=== PATIENT | female | born 1980 | race Two or more races ===

== ENCOUNTER → 2024-09-04 | Outpatient (CLI) | payer MEDICARE, MEDICAID, SELFPAY ==
--- NOTE | 2024-09-04 14:45 | XR_ITS ---
Examination: Ultrasound soft tissue chest TECHNIQUE: Grayscale sonographic images soft tissue chest Exam date and time: September 04, 2024 1452 hours INDICATIONS: Palpable mass left breast increasing redness in size beginning one month ago FINDINGS: 16 x 3 x 12 mm tubular mass in the subcutaneous soft tissue at the area concern IMPRESSION: Solid mass at the area concern 16 x 3 x 12 mm, differential would include soft tissue tumor This mass is amenable to ultrasound-guided biopsies as clinically warranted
== END | disposition home or self-care (01) ==
PROVIDERS: PCP Family Medicine; Referring Provider Nurse Practitioner Family; Visit Provider Nurse Practitioner Family
DX: N61.1 Abscess of the breast and nipple (principal)
CPT/HCPCS: 76604

== ENCOUNTER → 2025-06-01 | Outpatient (CLI) | payer MEDICARE, MEDICAID, SELFPAY ==
--- NOTE | 2025-06-01 09:30 | XR_ITS ---
Examination: Pelvic ultrasound, transabdominal, complete Technique: Transabdominal ultrasound of the pelvis performed using grayscale imaging Date and time of exam: 06/01/2025 at 9:31 a.m. INDICATION: Irregular menstruation for 3 months COMPARISON: None FINDINGS: The anteverted uterus measures 6.9 x 3.1 x 4.2 cm. Echotexture is within normal limits. No apparent fibroids. The endometrium measures 8 mm in thickness. No polyp or other discrete mass detected. The right ovary measures 4.1 x 2.3 x 3.0 cm. No concerning lesion. The left ovary measures 3.5 x 1.6 x 2.0 cm. No concerning lesion. Both ovaries show intact blood flow on color Doppler. No adnexal mass detected. No apparent free fluid The urinary bladder is well distended and appears normal in the [id number]. IMPRESSION: Normal pelvic ultrasound.
--- NOTE | 2025-06-01 09:30 | XR_ITS ---
Examination: Abdomen sonogram, complete Date and time of exam: 06/01/2025 at 9:39 a.m. INDICATION: Irregular menses for 3 months COMPARISON: Abdominal ultrasound 12/31/2017 Technique: Multiple real-time grayscale transabdominal sonographic images of the abdomen have been obtained. Findings: The visualized portions of the pancreas show no significant findings. The liver is normal in size and demonstrates smooth contours. The liver parenchyma demonstrates increased echogenicity and coarse echotexture, which could be related to hepatic steatosis or other chronic hepatocellular disease process. A small mildly lobulated cyst in the left hepatic lobe measures 1.1 x 0.8 x 1.1 cm. No solid mass detected. Color Doppler demonstrates patency of the main portal vein with normal hepatopetal flow. Color Doppler also shows flow in the hepatic veins and IVC. Cholecystectomy without evidence for concerning biliary ductal dilatation. The common bile duct measures 0.4 cm in caliber. The spleen is normal in size, measuring 9.4 cm in length, and and demonstrates normal echogenicity with no focal lesion appreciated. The kidneys are normal in size and echogenicity bilaterally with right renal length of 10.5 cm and left renal length of 9.9 cm. No hydronephrosis, dominant calculus or renal mass evident. A small simple interpolar right renal cyst measures 1.1 cm. The visualized portions of the abdominal aorta and inferior vena cava are normal in appearance with no abdominal aortic aneurysm appreciated. No mass, ascites or other significant finding is identified. IMPRESSION: Probable hepatic steatosis although differential diagnosis does include chronic hepatitis and fibrosis in the appropriate clinical setting. Small benign-appearing left hepatic lobe cyst and right renal cyst. Cholecystectomy without evidence for concerning biliary ductal dilatation. No acute findings.
== END | disposition home or self-care (01) ==
PROVIDERS: PCP Nurse Practitioner Family; Referring Provider Nurse Practitioner Family; Visit Provider Nurse Practitioner Family
DX: N92.6 Irregular menstruation, unspecified (principal); N28.89 Other specified disorders of kidney and ureter; K76.9 Liver disease, unspecified
CPT/HCPCS: 76700; 76856